=== PATIENT | female | born 1950 | race Caucasian/White ===

== ENCOUNTER → 2021-07-12 | Outpatient (CLI) | payer MEDICARE ==
[~2021-07-12] MED LIST: Cholest Off450 MG PO; FISH OIL 1,4001 EACH PO; Glucosamine Ch1 EAC4 PO; MULTIVITAMIN; VITAMIN B122500 MCG PO
[2021-07-13 12:36] LABS: Stool Occult Bld Immuno 1 Negative (NEGATIVE)
== END | disposition home or self-care (01) ==
LOC: OLS 13:26 → LAB 13:26 → LAB SHORT 13:26
PROVIDERS: Student in an Organized Health Care Education/Training Program
DX: R19.7 Diarrhea, unspecified (principal)
CPT/HCPCS: 82274; 83631

== ENCOUNTER 2021-08-21 12:48 | Day surgery (SDC) | payer MEDICARE ==
[~2021-08-21] VITALS: Ht 162.6 cm; Wt 66.1 kg
--- NOTE | 2021-08-21 13:11 | NUR ---
08/21/21 1311 Kristian Ward CALL LIGHT WITHIN REACH
== END 2021-08-21 14:35 | disposition home or self-care (01) ==
LOC: ORSCSDS 12:48
PROVIDERS: Ophthalmology
PROC: 08RJ3JZ Replacement of Right Lens with Synthetic Substitute, Percutaneous Approach (ICD-10-PCS; principal; 2021-08-21 14:00)
DX: H25.12 Age-related nuclear cataract, left eye (principal)
CPT/HCPCS: J2001; J2250; J3301; J7040; V2632

== ENCOUNTER 2021-09-18 10:08 | Day surgery (SDC) | payer MEDICARE ==
[~2021-09-18] VITALS: Ht 162.6 cm; Wt 65.6 kg
--- NOTE | 2021-09-18 10:52 | NUR ---
09/18/21 1052 PAPITO DOUGLAS TETRACAINE DROP INSTILLED AT 1048. PLEDGETT INSERTED AT 1049
== END 2021-09-18 12:20 | disposition home or self-care (01) ==
LOC: ORSCSDS 10:08
PROVIDERS: Ophthalmology
PROC: 08RJ3JZ Replacement of Right Lens with Synthetic Substitute, Percutaneous Approach (ICD-10-PCS; principal; 2021-09-18 11:30)
DX: H25.11 Age-related nuclear cataract, right eye (principal)
CPT/HCPCS: J2001; J2250; J3010; J3301; J7040; V2632

== ENCOUNTER → 2025-03-20 | Outpatient (CLI) | payer OTHER ==
[2025-03-20 14:04] LABS: Adenovirus F 40/41 Not Detected (NOT DETECT); Astrovirus Not Detected (NOT DETECT); Campylobacter Sp Not Detected (NOT DETECT); Cryptosporidium Not Detected (NOT DETECT); Cyclospora Cayetanensis Not Detected (NOT DETECT); E. Coli O157 Not Detected (NOT DETECT); Entamoeba Histolytica Not Detected (NOT DETECT); Enteroaggregative E. coli-EAEC Not Detected (NOT DETECT); Enteropathogenic E. coli-EPEC Not Detected (NOT DETECT); Enterotoxigenic E. coli-ETEC Not Detected (NOT DETECT); Giardia Lamblia Not Detected (NOT DETECT); Norovirus GI/GII Not Detected (NOT DETECT); Plesiomonas Shigelloides Not Detected (NOT DETECT); Rotavirus A Not Detected (NOT DETECT); Salmonella Sp Not Detected (NOT DETECT); Sapovirus Not Detected (NOT DETECT); Shiga Toxin-prod E. coli-STEC Not Detected (NOT DETECT); Shigella/Enteroin E. coli-EIEC Not Detected (NOT DETECT); Vibrio Cholerae Not Detected (NOT DETECT); Vibrio Sp Not Detected (NOT DETECT); Yersinia Enterocolitica Not Detected (NOT DETECT)
[2025-03-22 16:42] LABS: CALPROTECTIN,FECAL 154 ug/g (<=49)
[2025-03-22 16:48] LABS: PANCREATIC ELASTASE,FECAL 290 ug/g (>=100)
== END ==
LOC: LAB SHORT 10:06 → LAB 10:06
PROVIDERS: Family Medicine
DX: K52.9 Noninfective gastroenteritis and colitis, unspecified (principal)
CPT/HCPCS: 82653; 83993; 87507

== ENCOUNTER 2025-06-11 08:33 | Day surgery (SDC) | payer OTHER ==
[~2025-06-11] VITALS: Ht 162.6 cm; Wt 62.1 kg
[2025-06-11] MEDS ORDERED: ATORVALIQ20 MG/5 ML (09:00)
[2025-06-11] MEDS ORDERED: LISINOPRIL2.5 MG (09:00)
[2025-06-11] MEDS ORDERED: Glycopyrrolate 0.2 MG/ML 1MLVIAL ONE (10:00)
[2025-06-11 11:00] VITALS: BP 104/70
== END 2025-06-11 10:50 | disposition home or self-care (01) ==
LOC: ORSCSDS 08:33
PROVIDERS: Internal Medicine Gastroenterology
PROC: 0DBE8ZX Excision of Large Intestine, Via Natural or Artificial Opening Endoscopic, Diagnostic (ICD-10-PCS; principal; 2025-06-11 10:30)
DX: R19.7 Diarrhea, unspecified (principal); K52.832 Lymphocytic colitis; Z79.899 Other long term (current) drug therapy
CPT/HCPCS: 88305; J2704; J7120